=== PATIENT | male | born 1985 | race Caucasian/White ===

== ENCOUNTER 2024-02-04 18:35 | Emergency (ER) | payer SELFPAY ==
[2024-02-04] MEDS: Cephalexin 500 MG Cap PO ONE (19:58)
[2024-02-04] MEDS: Acetaminophen/oxyCODONE 325-10 MG Tab PO ONE (19:58)
== END 2024-02-04 20:04 | disposition home or self-care (01) ==
LOC: MW.ED 18:35
DX: L55.1 Sunburn of second degree (principal); L03.116 Cellulitis of left lower limb; I10 Essential (primary) hypertension; E11.9 Type 2 diabetes mellitus without complications; Z79.899 Other long term (current) drug therapy; Z79.84 Long term (current) use of oral hypoglycemic drugs; Z75.8 Other problems related to medical facilities and other health care
CPT/HCPCS: 99282; A9270; 99283